=== PATIENT | female | born 1955 | race Two or more races ===

== ENCOUNTER 2021-05-31 14:54 | Emergency (ER) | payer MEDICAID, OTHER ==
[~2021-05-31] VITALS: Ht 167.6 cm; Wt 63.5 kg
[2021-05-31 14:54] VITALS: BP 104/64
[2021-05-31 15:32] LABS: Basophils # (auto) 0 10 ^3/uL (0-0.2); Basophils % (auto) 0.6 % (0.0-2.0); Eosinophils # (auto) 0.1 10 ^3/uL (0-0.8); Eosinophils % (auto) 0.9 % (0.0-7.0); Hematocrit 37.4 % (36.0-46.0); Hemoglobin 12.8 g/dL (12.2-16.2); Lymphocytes # (auto) 1.6 10 ^3/uL (0.4-5.4); Lymphocytes % (auto) 26.1 % (10.0-50.0); Mean Corpuscular Hgb Conc. 34.2 g/dL (32.0-36.0); Mean Corpuscular Volume 84.9 fL (80.0-100.0); Monocytes # (auto) 0.8 10 ^3/uL (0-1.3); Monocytes % (auto) 12.7 % (0.0-12.0); Neutrophils # (auto) 3.6 10 ^3/uL (1.6-8.6); Neutrophils % (auto) 59.7 % (37.0-80.0); Red Blood Cells 4.41 10^6/uL (4.0-5.20); Red Cell Distribution Width 12.9 % (11.8-14.3)
[2021-05-31 15:58] LABS: Albumin 3.5 g/dL (3.4-5.0); Calcium 8.9 mg/dL (8.5-10.1); Potassium 3.8 mmol/L (3.5-5.1)
[2021-05-31 16:02] LABS: Bilirubin, Total 0.6 mg/dL (0.2-1.0)
== END 2021-05-31 16:47 | disposition home or self-care (01) ==
LOC: ER 14:54
DX: U07.1 COVID-19 (principal); J12.82 Pneumonia due to coronavirus disease 2019
CPT/HCPCS: 36415; 71045; 80053; 85025; 87426; 93005

== ENCOUNTER 2021-08-27 14:54 | Emergency (ER) | payer SELFPAY ==
[~2021-08-27] VITALS: Ht 167.6 cm; Wt 63.5 kg
[2021-08-27 14:56] VITALS: BP 141/78
== END 2021-08-27 16:38 | disposition home or self-care (01) ==
LOC: EDBD 14:56 → ER 14:56
DX: J02.9 Acute pharyngitis, unspecified (principal); Z76.0 Encounter for issue of repeat prescription; Z20.822 Contact with and (suspected) exposure to COVID-19
CPT/HCPCS: 36415; 71046

== ENCOUNTER 2021-09-22 09:43 | Emergency (ER) | payer SELFPAY ==
[~2021-09-22] VITALS: Ht 167.6 cm; Wt 54.4 kg
[2021-09-22 09:44] VITALS: BP 172/103
== END 2021-09-22 12:01 | disposition home or self-care (01) ==
LOC: ER 09:43
DX: B02.9 Zoster without complications (principal)